=== PATIENT | male | born 1980 | race Two or more races ===

== ENCOUNTER 2017-02-04 13:12 | Emergency (ER) | payer MEDICAID, OTHER ==
[~2017-02-04] VITALS: Ht 180.3 cm; Wt 86.2 kg
[2017-02-04 13:32] VITALS: BP 136/85
== END 2017-02-04 14:53 | disposition home or self-care (01) ==
LOC: ER 13:12
DX: L08.9 Local infection of the skin and subcutaneous tissue, unspecified (principal); M25.522 Pain in left elbow; M25.521 Pain in right elbow

== ENCOUNTER 2019-06-21 23:28 | Emergency (ER) | payer MEDICAID ==
[~2019-06-21] VITALS: Ht 182.9 cm; Wt 86.2 kg
[2019-06-22] MEDS ORDERED: TETANUS-DIPTH-ACEL PERTUSSIS 0.5ML SYR Tdap IM ONE (01:15)
[2019-06-22 01:31] VITALS: BP 141/91
== END 2019-06-22 01:49 | disposition home or self-care (01) ==
LOC: ER 23:29
DX: S01.01XA Laceration without foreign body of scalp, initial encounter (principal); H57.89 Other specified disorders of eye and adnexa; Y04.0XXA Assault by unarmed brawl or fight, initial encounter; Y93.89 Activity, other specified; Y92.89 Other specified places as the place of occurrence of the external cause; Y99.8 Other external cause status
CPT/HCPCS: 90471; 90715